=== PATIENT | female | born 1975 | race Caucasian/White ===

== ENCOUNTER → 2017-09-05 | Outpatient (CLI) | payer BC | LOC: MC.RAD 07:09 | DX: Z12.31 Encounter for screening mammogram for malignant neoplasm of breast (principal) ==

== ENCOUNTER → 2018-10-16 | Outpatient (CLI) | payer BC | LOC: MC.RAD 15:34 | DX: Z12.31 Encounter for screening mammogram for malignant neoplasm of breast (principal) ==

== ENCOUNTER → 2019-11-06 | Outpatient (CLI) | payer BC | LOC: MC.RAD 15:18 | DX: Z12.31 Encounter for screening mammogram for malignant neoplasm of breast (principal) ==

== ENCOUNTER → 2020-11-26 | Outpatient (CLI) | payer BC ==
[~2020-11-26] MED LIST: HUMIRA40 MG/0.4 SQ; PROTONIX 40MG T40 MG PO; SYNTHROID0.125 MG/T PO; XANAX .25M0.25 MG/TA PO; ZOLOFT 50MG50 MG PO
== END ==
LOC: MC.RAD 11:33
DX: Z12.31 Encounter for screening mammogram for malignant neoplasm of breast (principal)

== ENCOUNTER → 2022-01-11 | Outpatient (CLI) | payer BC | LOC: MC.RAD 14:53 | DX: Z12.31 Encounter for screening mammogram for malignant neoplasm of breast (principal) ==

== ENCOUNTER → 2024-01-19 | Outpatient (CLI) | payer BC | LOC: MC.RAD 14:38 | DX: Z01.419 Encounter for gynecological examination (general) (routine) without abnormal findings (principal); Z12.31 Encounter for screening mammogram for malignant neoplasm of breast ==